=== PATIENT | female | born 1995 | race Two or more races ===

== ENCOUNTER 2016-10-25 12:58 | Observation (INO) | payer BC, MEDICAID ==
[2016-10-25] MEDS ORDERED: PRENA1 CHEW TA1.4 M1 PO (14:01)
[2016-10-25] MEDS ORDERED: SERTRALINE HCL50 M4 PO (14:01)
[2016-10-25] MEDS ORDERED: RANITIDINE HCL150 M3 PO (14:02)
[2016-10-25] MEDS ORDERED: FEROSUL325 M1 (14:03)
== END 2016-10-25 17:40 ==
LOC: LDR 12:58
PROVIDERS: ADMIT Obstetrics & Gynecology
DX: O47.1 False labor at or after 37 completed weeks of gestation (principal); Z3A.39 39 weeks gestation of pregnancy

== ENCOUNTER 2016-10-30 08:12 | Inpatient (IN) | payer BC, MEDICAID ==
[~2016-10-30 08:12] MED LIST: FEROSUL325 M1; PRENA1 CHEW TA1.4 M1 PO; RANITIDINE HCL150 M3 PO; SERTRALINE HCL50 M4 PO
[2016-10-30] MEDS ORDERED: RANITIDINE HCL150 M3 PO (10:25)
[2016-10-30 10:46] LABS: BASO % 0.2 % (0-2); EOS % 0.7 % (0-7); EOSINOPHIL ABSOLUTE COUNT 0.1 tho/cmm (0.0-0.7); HCT-HEMATOCRIT 36.8 % (34.0-49.0); HGB-HEMOGLOBIN 12.8 gm/dl (12.0-15.5); IMMATURE GRANULOCYTES ABSOLUTE 0.11 tho/cmm (0-0.03); IMMATURE GRANULOCYTES PERCENT 1.1 % (0-0.3); LYMPH % 20.9 % (20-45); MCH (MEAN CORPUSCULAR HGB) 30.2 pg (28.0-32.0); MCHC MEAN CORPUSCULAR HGB CONC 34.8 % (32.0-36.0); MCV (MEAN CELL VOLUME) 86.8 fl (82.0-96.0); MEAN PLATELET VOLUME 10.2 cmc (9.4-12.4); MONO % 6.5 % (0-12); MONOCYTE ABSOLUTE COUNT 0.6 tho/cmm (0.0-1.2); NEUTROPHIL ABSOLUTE COUNT 6.8 tho/cmm (1.6-8.0); NEUTROPHIL-AUTOMATED 6.8 tho/cmm (1.6-8.0); NEUTROPHILS % 70.6 % (40-80); PLATELET COUNT 216 tho/cmm (150-450); RED BLOOD COUNT 4.24 mil/cmm (4.00-5.20); RED CELL DISTRIBUTION WIDTH 12.8 % (12.4-16.4); WHITE BLOOD COUNT 9.7 tho/cmm (4.0-10.0)
[2016-11-01 07:30] LABS: BASO % 0.3 % (0-2); EOS % 1.3 % (0-7); EOSINOPHIL ABSOLUTE COUNT 0.2 tho/cmm (0.0-0.7); HCT-HEMATOCRIT 35.9 % (34.0-49.0); HGB-HEMOGLOBIN 12.2 gm/dl (12.0-15.5); IMMATURE GRANULOCYTES ABSOLUTE 0.12 tho/cmm (0-0.03); IMMATURE GRANULOCYTES PERCENT 1.1 % (0-0.3); LYMPH ABSOLUTE COUNT 3.1 tho/cmm (0.8-4.5); MCV (MEAN CELL VOLUME) 88.2 fl (82.0-96.0); MEAN PLATELET VOLUME 9.9 cmc (9.4-12.4); MONO % 6.8 % (0-12); MONOCYTE ABSOLUTE COUNT 0.8 tho/cmm (0.0-1.2); NEUTROPHIL ABSOLUTE COUNT 7.3 tho/cmm (1.6-8.0); NEUTROPHIL-AUTOMATED 7.3 tho/cmm (1.6-8.0); NEUTROPHILS % 63.5 % (40-80); PLATELET COUNT 206 tho/cmm (150-450); RED BLOOD COUNT 4.07 mil/cmm (4.00-5.20); RED CELL DISTRIBUTION WIDTH 13.2 % (12.4-16.4); WHITE BLOOD COUNT 11.4 tho/cmm (4.0-10.0)
[2016-11-02] MEDS ORDERED: IBUPROFEN800 M1 PO (11:14)
== END 2016-11-02 14:20 | DRG 775 ==
LOC: LDR 08:12 → OBGD 10-31 03:41
PROVIDERS: ADMIT Obstetrics & Gynecology
PROC: 10907ZC Drainage of Amniotic Fluid, Therapeutic from Products of Conception, Via Natural or Artificial Opening (ICD-10-PCS; 2016-10-30)
PROC: 3E033VJ Introduction of Other Hormone into Peripheral Vein, Percutaneous Approach (ICD-10-PCS; 2016-10-30)
PROC: 10E0XZZ Delivery of Products of Conception, External Approach (ICD-10-PCS; principal; 2016-10-31)
DX: O77.0 Labor and delivery complicated by meconium in amniotic fluid (principal); Z37.0 Single live birth; Z3A.40 40 weeks gestation of pregnancy
CPT/HCPCS: J2590